=== PATIENT | female | born 2005 | race African-American/Black ===

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

== ENCOUNTER 2024-03-06 00:39 | Emergency (ER) | payer OTHER ==
[2024-03-06 00:48] VITALS: BP 111/73; PULSE 93; RESP 18; TEMP 98.6; BMI 39.0
[2024-03-06 01:04] LABS: EPI CELLS 29 /uL (0-25.1); HYALINE CASTS 1 /uL (0-3.1); PH,URINE 6.5 (5.0-8.0); URINE APPEARANCE CLOUDY; URINE BACTERIA 1124 /uL (0-1359); URINE BILIRUBIN NEGATIVE (NEGATIVE); URINE COLOR YELLOW; URINE GLUCOSE (UA) NEGATIVE (NEGATIVE); URINE KETONE TRACE (NEGATIVE); URINE LEUK ESTERASE 2+ (NEGATIVE); URINE NITRITE NEGATIVE (NEGATIVE); URINE PROTEIN TRACE (NEGATIVE); URINE RBC 30 /uL (0-23.9); URINE WBC 269 /uL (0-25.8)
[2024-03-06] MEDS ORDERED: FLUCONAZOLE 150 MG TABLET PO ONE (02:53)
[2024-03-06] MEDS: FLUCONAZOLE 150 MG TABLET PO ONE (03:11)
[2024-03-06 04:39] LABS: HIV INTERPRETATION NEGATIVE (NEGATIVE)
== END 2024-03-06 03:17 | disposition home or self-care (01) ==
LOC: JER 00:39
DX: L29.2 Pruritus vulvae (principal)
CPT/HCPCS: 36415; 81003; 87086; 87389; 87491; 87591; 99283-25